=== PATIENT | male | born 1975 | race Caucasian/White ===

== ENCOUNTER 2023-08-01 19:16 | Emergency (ER) | payer OTHER ==
[2023-08-01 19:23] VITALS: BP 132/80; PULSE 93; RESP 20; TEMP 99.1; BMI 31.6
[2023-08-01] MEDS ORDERED: ACETAMINOPHEN 1000 MG/100 ML BAG IVPB ONE (20:09)
[2023-08-01] MEDS ORDERED: SODIUM CHLORIDE 0.9% 500 ML INFUS.BAG IV ONE (20:09)
[2023-08-01] MEDS ORDERED: ACETAMINOPHEN INJECTION 100 ML IVPB ONE (21:31)
[2023-08-01 21:34] LABS: BASO % 0.8 % (0-2.0); EOS % 0.5 % (0-4.5); HEMOGLOBIN 13.9 GM/dL (11.7-16.9); MCH 30.9 pg (25.7-33.7); MEAN CELL VOLUME 90.9 fl (80-96); MEAN PLT VOLUME 7.1 fl (7.5-11.1); MONO % 9.9 % (3.8-10.2); NEUT % 74.8 % (42.8-82.8); PLATELET COUNT 277 10^3/uL (134-434); RBC 4.51 M/mm3 (4.00-5.60); RDW 13.1 % (11.9-15.9); WHITE BLOOD COUNT 13.2 K/mm3 (4.0-10.0)
[2023-08-01 21:41] LABS: INR 1.1 (0.83-1.09); PROTHROMBIN TIME (PATIENT) 12.7 SEC (9.7-13.0)
[2023-08-01 21:43] LABS: ACTIVATED PTT 31.2 SECONDS (25.2-36.5)
[2023-08-01 22:27] LABS: POTASSIUM 4.2 mmol/L (3.5-5.1)
[2023-08-01 22:39] LABS: CALCIUM 8.3 mg/dL (8.5-10.1)
[2023-08-01 22:40] LABS: ALBUMIN 3.4 g/dl (3.4-5.0); BLOOD UREA NITROGEN 13.5 mg/dL (7-18)
[2023-08-01 22:43] LABS: CREATININE 0.9 mg/dL (0.55-1.3)
[2023-08-01 22:44] LABS: TOT PROT 6.7 g/dl (6.4-8.2)
[2023-08-01 23:07] LABS: BILIRUBIN,TOTAL 0.4 mg/dL (0.2-1)
[2023-08-02] MEDS ORDERED: AZITHROMYCIN 250 MG TABLET PO ONE (00:10)
[2023-08-02] MEDS ORDERED: AZITHROMYCIN 500 MG TABLET ONE (00:32)
== END 2023-08-02 00:38 | disposition home or self-care (01) ==
LOC: JER 19:16
PROC: 3E033NZ Introduction of Analgesics, Hypnotics, Sedatives into Peripheral Vein, Percutaneous Approach (ICD-10-PCS; principal; 2023-08-01)
DX: R07.81 Pleurodynia (principal); J18.9 Pneumonia, unspecified organism; R19.7 Diarrhea, unspecified; Z20.822 Contact with and (suspected) exposure to COVID-19
CPT/HCPCS: 0241U-QW; 36415; 71046-TC-FY; 71275-TC; 74174-TC; 80053; 84484; 85025; 85610; 85730; 86850; 86900; 86901; 93005; 93010; 99285-25; Q9967